=== PATIENT | female | born 1940 | race Two or more races ===

== ENCOUNTER 2019-01-21 20:21 | Emergency (ER) | payer MEDICARE, OTHER ==
[~2019-01-21] VITALS: Ht 167.6 cm; Wt 81.6 kg
[2019-01-21 20:34] VITALS: BP 150/74
--- NOTE | 2019-01-21 20:35 | NUR ---
ED Nurse Note: Pt walked in to ED accompanied by her son from home for S/P fall. denies any KO. pt landed on her right side of the body with multiple bruises. bruises/ hematoma present to right knee, eyes and wrist area, pt is currently on aspirin. pt is alert x3.
[2019-01-21] MEDS ORDERED: Bacitracin Oint UD TOPIC ONE (21:00)
[2019-01-21] MEDS ORDERED: Tetanus/Diptheria/Pertussis IM ONE (21:00)
--- NOTE | 2019-01-21 21:05 | NUR ---
ED Nurse Note: X ray at bedside.
[2019-01-21] MEDS ORDERED: METFORMIN HCL500 M1 ORAL (21:17)
[2019-01-21] MEDS ORDERED: ASPIR 8181 MG ORAL (21:17)
[2019-01-21] MEDS ORDERED: BENICAR40 MG ORAL (21:17)
[2019-01-21] MEDS ORDERED: CARVEDILOL12.5 MG ORAL (21:17)
[2019-01-21] MEDS ORDERED: VASCEPA1 GM PO (21:17)
[2019-01-21] MEDS ORDERED: LEVOFLOXACIN500 MG ORAL (21:17)
--- NOTE | 2019-01-21 21:25 | Emergency Room Report ---
History of Present Illness General Chief Complaint: Multiple Trauma/Fall Source: Patient Present Illness HPI Patient fell. She hit her nose and also her right knee. She did not lose consciousness. She is been able to ambulate but has pain. She also has a blister and abrasions on her knee and abrasions on her face. She is not sure when her last tetanus vaccination was. She is taken Tylenol yesterday and today. The pain is improved with that. Pain is rated 7/10, aching nonradiating. History of hypertension and diabetes. Unable to attend orthodox today. Allergies: Coded Allergies: No Known Allergies (Unverified , 01/21/19) Patient History Past Medical History: see triage record Social History: Denies: smoking, alcohol use, drug use Social History Narrative Here with her son Last Menstrual Period: na Reviewed Nursing Documentation: PMH: Agreed; PSxH: Agreed Nursing Documentation-[facility] Past Medical History: No Stated History Hx Hypertension: Yes Hx Diabetes: Yes Review of Systems All Other Systems: negative except mentioned in HPI Physical Exam Vital Signs Date Time Temp Pulse Resp B/P (MAP) Pulse Ox O2 Delivery O2 Flow Rate FiO2 01/21/19 20:26 97.7 68 16 150/74 (99) 96 Room Air Sp02 EP Interpretation: reviewed, normal General Appearance: well appearing, no apparent distress, GCS 15, non-toxic Head: normocephalic, other - Nasal and facial trauma Eyes: bilateral eye normal inspection, bilateral eye PERRL, bilateral eye EOMI ENT: EOM grossly intact, normal pharynx, moist mucus membranes, other - Nasal tenderness without crepitance with minimal swelling Neck: full range of motion, supple, no bony tend Respiratory: chest non-tender, lungs clear, normal breath sounds Cardiovascular #1: regular rate, rhythm, edema - Trace right lower leg Cardiovascular #2: 2+ radial (R), 2+ dorsalis pedis (R) Gastrointestinal: normal inspection, normal bowel sounds, non tender Genitourinary: no CVA tenderness Musculoskeletal: gait/station normal, swelling - Right knee, normal range of motion, back normal, tenderness - Right patella, other - Ligaments stable Neurologic: alert, oriented x3, grossly normal Psychiatric: mood/affect normal Skin: warm/dry, well hydrated, other - Ecchymoses right knee and also 3 x 2 cm blister patella, abrasions - Nose, right face and knee Procedures Additional Procedure Procedure Narrative After Betadine prep the right knee blister was unroofed and drained. Bacitracin applied. Dressing applied. Tolerated well. Medical Decision Making Diagnostic Impression: Primary Impression: Multiple injuries due to trauma Additional Impressions: Contusion of right knee Qualified Codes: S80.01XA - Contusion of right knee, initial encounter Nasal contusion Qualified Codes: S00.33XA - Contusion of nose, initial encounter Multiple abrasions Blister of right knee Qualified Codes: S80.221A - Blister (nonthermal), right knee, initial encounter ER Course Patient presents post non-syncopal fall without loss of consciousness with knee pain, skin changes and facial trauma. Differential includes fracture, contusions, hematoma, blistering possibly due to thermal injury of knee amongst others. Although the patient is ambulatory x-rays are indicated of the knee. The blister needs to be unroofed and drained. Patient needs tetanus. Bacitracin will be applied. Clinically there is no nasal fracture. The patient did not lose consciousness. Tylenol given. X-ray without injury. Degenerative joint disease. Blister unroofed. Dressings applied. Patient improved with treatment. Treatment plan discussed. Patient stable for outpatient observation and treatment. Other X-Ray Diagnostic Results Other X-Ray Diagnostic Results : X-Ray ordered: Right knee # of Views/Limited Vs Complete: 3 View Indication: Other EP Interpretation: Yes Interpretation: no dislocation, no soft tissue swelling, no fractures, other - DJD Impression: Other Electronically Signed by: Electronically signed by Dante Deleon MD Last Vital Signs Date Time Temp Pulse Resp B/P (MAP) Pulse Ox O2 Delivery O2 Flow Rate FiO2 01/21/19 21:33 98.0 84 18 144/74 98 Room Air Status: improved Disposition: HOME, SELF-CARE Condition: Improved Scripts Bacitracin (Bacitracin) 28.4 Gm Oint...g. 1 APPLIC TOPIC BID, #20 GM Prov: Dante Deleon MD 01/21/19 Dante Deleon MD Jan 21, 2019 21:25
[2019-01-21] MEDS ORDERED: BACITRACIN15 GM TOPIC (21:29)
[2019-01-21 21:33] VITALS: BP 144/74
--- NOTE | 2019-01-21 21:33 | Diagnostic Imaging Report ---
EXAM: XR Right Knee, 3 views CLINICAL HISTORY: TRAUMA TECHNIQUE: Three views of the right knee. COMPARISON: No relevant prior studies available. FINDINGS: Bones/joints: Mild medial compartment degenerative findings. Superior patellar pole enthesophyte. Otherwise unremarkable bones. No acute fracture. No dislocation. Soft tissues: Soft tissue swelling over the knee. IMPRESSION: 1. No acute osseous abnormality. 2. Mild medial compartment degenerative findings. 3. Superior patellar pole enthesophyte. 4. Soft tissue swelling over the knee.
--- NOTE | 2019-01-21 21:33 | NUR ---
ER DISCHARGE NOTE: Patient is cleared to be discharged per ERMD, pt is aox4, on room air, with stable vital signs. pt was given dc and prescription instructions, pt was able to verbalize understanding, pt id band removed without complications. pt is able to ambulate with steady gait. pt took all belongings.
== END 2019-01-21 21:33 | disposition home or self-care (01) ==
LOC: EMR 21:29
DX: S80.01XA Contusion of right knee, initial encounter (principal); S00.33XA Contusion of nose, initial encounter; S80.221A Blister (nonthermal), right knee, initial encounter; S00.31XA Abrasion of nose, initial encounter; S00.81XA Abrasion of other part of head, initial encounter; S80.211A Abrasion, right knee, initial encounter; W19.XXXA Unspecified fall, initial encounter; Y92.9 Unspecified place or not applicable; E11.9 Type 2 diabetes mellitus without complications; I10 Essential (primary) hypertension
CPT/HCPCS: 90471; 90715; 99283